=== PATIENT | male | born 1960 ===

== ENCOUNTER 2017-08-18 16:04 | Observation (INO) ==
[2017-08-18] MEDS ORDERED: DEXTROSE 50% 25 GM/50 ML VIAL IV PRN (18:38)
[2017-08-18] MEDS ORDERED: GLUCAGON 1 MG VIAL IM PRN (18:38)
[2017-08-18 18:49] LABS: Basophils # 0.1 10*3/uL (0.0-0.2); Basophils % 1.4 % (0.0-0.8); Eosinophils # 0.4 10*3/uL (0.0-0.87); Eosinophils % 4.8 % (0.00-10.9); Hematocrit 37.9 VOL% (42.0-52.0); Immature Granulocytes % 0.6 %; Immature Granulocytes Absolute 0.05 #; Lymphocytes # 1.6 10*3/uL (1.4-4.0); Lymphocytes % 20.4 % (21.2-54.2); Mean Corpuscular HGB Conc 34.3 GM/DL (32-36); Mean Corpuscular Hemoglobin 29 PG (27-34); Mean Corpuscular Volume 84.6 FL (87-102); Mean Platelet Volume 10.4 FL (9.6-12.0); Monocytes # 0.7 10*3/uL (0.11-0.8); Neutrophils # 5.1 10*3/uL (1.4-7.4); Neutrophils % 63.8 % (38.7-73.9); Platelet Count 228 T/CUMM (130-400); Red Blood Count 4.48 MC/CUMM (3.8-5.5); Red Cell Distribution Width 13.2 % (9.3-17.3)
[2017-08-18 19:18] LABS: Alanine Aminotransferase 15 U/L (16-61); Alkaline Phosphatase 93 U/L (45-117); Aspartate Amino Transferase 11 U/L (0-37); Bilirubin,Total < 0.39 MG/DL (0.2-1.0); Blood Urea Nitrogen 23 MG/DL (7-18); Calcium 8.6 MG/DL (8.5-10.1); Glucose 176 MG/DL (74-106); Osmolality,Calculated 286.4 MOS/KG (273-304); Potassium 3.8 MMOL/L (3.5-5.1); Sodium 140 MMOL/L (136-145); Total Protein 8.7 G/DL (6.4-8.3)
[2017-08-18] MEDS ORDERED: DOCUSATE SODIUM 100 MG CAPSULE PO PRN (20:09)
[2017-08-18] MEDS ORDERED: POLYVINYL ALCOHOL 1.4% OPH SOLN 15 ML BOTTLE BOTH EYES PRN (20:09)
[2017-08-18] MEDS ORDERED: SIMVASTATIN 20 MG TABLET PO SCH (21:00)
[2017-08-18] MEDS: INSULIN LISPRO 100 UNIT/ML SUBCUT SCH (21:03)
[2017-08-18] MEDS: METOPROLOL TARTRATE 50 MG TABLET PO SCH (21:59)
[2017-08-18] MEDS: hydrALAZINE 25 MG TABLET PO SCH (21:59)
[2017-08-19 05:19] LABS: Basophils # 0.1 10*3/uL (0.0-0.2); Basophils % 1.2 % (0.0-0.8); Eosinophils # 0.4 10*3/uL (0.0-0.87); Eosinophils % 5.6 % (0.00-10.9); Hematocrit 32.5 VOL% (42.0-52.0); Hemoglobin 11.3 GM/DL (14.0-18.0); Immature Granulocytes % 0.4 %; Immature Granulocytes Absolute 0.03 #; Lymphocytes # 1.6 10*3/uL (1.4-4.0); Lymphocytes % 24.1 % (21.2-54.2); Mean Corpuscular HGB Conc 34.8 GM/DL (32-36); Mean Corpuscular Hemoglobin 29 PG (27-34); Mean Platelet Volume 10.6 FL (9.6-12.0); Monocytes # 0.7 10*3/uL (0.11-0.8); Monocytes % 10.6 % (1.7-12.7); Neutrophils % 58.1 % (38.7-73.9); Platelet Count 200 T/CUMM (130-400); Red Blood Count 3.87 MC/CUMM (3.8-5.5); Red Cell Distribution Width 13.4 % (9.3-17.3); White Blood Count 6.8 T/CUMM (4-12)
[2017-08-19 05:52] LABS: Calcium 8.4 MG/DL (8.5-10.1); Potassium 3.6 MMOL/L (3.5-5.1); Risk Ratio 2.32; Thyroid Stimulating Hormone 6.04 uIU/ml (0.358-3.74); VLDL CHOLESTEROL 20.8 MG/DL
[2017-08-19] MEDS: INSULIN LISPRO 100 UNIT/ML SUBCUT SCH ×3 (07:42→16:35)
[2017-08-19] MEDS ORDERED: amLODIPine 10 MG TABLET PO SCH (09:00)
[2017-08-19] MEDS ORDERED: sitaGLIPtin 100 MG TABLET PO SCH (09:00)
[2017-08-19] MEDS ORDERED: OMEGA 3 ACID ETHYL ESTERS 1 GM CAPSULE PO SCH (09:00)
[2017-08-19] MEDS ORDERED: ASPIRIN EC 81 MG TABLET PO SCH (09:00)
[2017-08-19] MEDS ORDERED: BENAZEPRIL 10 MG TABLET PO SCH (09:00)
[2017-08-19] MEDS: hydrALAZINE 25 MG TABLET PO SCH (10:32)
[2017-08-19] MEDS: METOPROLOL TARTRATE 50 MG TABLET PO SCH (10:32)
[2017-08-19 13:17] VITALS: BP 162/88
[2017-08-20] MEDS ORDERED: CLOPIDOGREL 75 MG TABLET PO SCH (09:00)
== END 2017-08-19 16:35 | disposition home or self-care (01) ==
LOC: N.EDINP 16:04 → N.ED 16:04 → N.4E 19:26
PROVIDERS: ADMIT Internal Medicine; ATTEND Internal Medicine